=== PATIENT | male | born 1970 | race Caucasian/White ===

== ENCOUNTER 2020-11-28 04:43 | Day surgery (SDC) | payer OTHER ==
[2020-11-25 11:34] VITALS: BMI 28.3
[2020-11-28] MEDS ORDERED: BUPIVACAINE HCL 100 ML ONE (07:14)
[2020-11-28] MEDS ORDERED: BUPIVACAINE LIPOSOME/PF (EXPAREL) 266 MG/20 ML VIAL ONE (07:14)
[2020-11-28] MEDS ORDERED: MIDAZOLAM HCL 2 MG/2 ML SINGLE DOSE VIAL ONE ×3 (07:15→07:45)
[2020-11-28] MEDS ORDERED: BUPIVACAINE HCL/PF 0.25% (2.5MG/ML) 10 ML VIAL ONE (07:38)
[2020-11-28] MEDS ORDERED: LIDOCAINE HCL/PF 2% SDV 5ML VIAL ONE (07:44)
[2020-11-28] MEDS ORDERED: ROCURONIUM BROMIDE 50 MG/5 ML SYRINGE ONE (07:45)
[2020-11-28] MEDS ORDERED: PROPOFOL 20 ML ONE (07:45)
[2020-11-28] MEDS ORDERED: ceFAZolin SODIUM 1 GM VIAL IVPB ONE (08:08)
[2020-11-28] MEDS ORDERED: BUPIVACAINE HCL/PF 0.5% (5MG/ML) 10 ML VIAL IJ ONE (09:25)
[2020-11-28] MEDS ORDERED: oxyCODONE HCL 5 MG TABLET PO PRN ×2 (10:00)
[2020-11-28] MEDS ORDERED: ACETAMINOPHEN 325 MG TABLET (FP) PO SCH (10:00)
[2020-11-28] MEDS ORDERED: ONDANSETRON 4 MG/2 ML VIAL IVPUSH PRN (10:00)
[2020-11-28] MEDS ORDERED: LACTATED RINGERS SOLUTION 1,000 ML IV SCH (10:00)
[2020-11-28] MEDS ORDERED: ACETAMINOPHEN INJECTION 100 ML IVPB ONE (10:28)
[2020-11-28] MEDS ORDERED: ceFAZolin SODIUM 1 GM VIAL ONE (11:17)
[2020-11-28] MEDS ORDERED: DEXAMETHASONE SOD PHOSPHATE 4 MG/1 ML VIAL ONE (11:17)
[2020-11-28] MEDS ORDERED: KETOROLAC TROMETHAMINE 30 MG/1 ML VIAL ONE (11:17)
[2020-11-28] MEDS ORDERED: ONDANSETRON 4 MG/2 ML VIAL ONE (11:48)
[2020-11-28] MEDS ORDERED: oxyCODONE HCL 5 MG TABLET PO ONE (14:17)
[2020-11-28] MEDS ORDERED: oxyCODONE HCL 5 MG TABLET ONE (14:19)
[2020-11-28 15:12] VITALS: BP 145/73; PULSE 70; TEMP 96.9
== END 2020-11-28 15:30 | disposition home or self-care (01) ==
LOC: JASU-SURG 04:43
PROVIDERS: ATTEND Surgery
PROC: 8E0W4CZ Robotic Assisted Procedure of Trunk Region, Percutaneous Endoscopic Approach (ICD-10-PCS; 2020-11-28)
PROC: 0YU54JZ Supplement Right Inguinal Region with Synthetic Substitute, Percutaneous Endoscopic Approach (ICD-10-PCS; principal; 2020-11-28 08:00)
DX: K40.30 Unilateral inguinal hernia, with obstruction, without gangrene, not specified as recurrent (principal)
CPT/HCPCS: 49650; S2900; 94760; J0131

== ENCOUNTER 2021-06-12 16:29 | Emergency (ER) | payer OTHER ==
[2021-06-12 16:47] VITALS: BMI 30.5
[2021-06-13 01:46] VITALS: BP 148/86; PULSE 64; TEMP 98.7
== END 2021-06-13 01:51 | disposition short-term general hospital (02) ==
LOC: JERFT 16:29 → JER 16:29
DX: S05.92XA Unspecified injury of left eye and orbit, initial encounter (principal); W22.8XXA Striking against or struck by other objects, initial encounter
CPT/HCPCS: 99285-25; C9803; U0003; U0005